=== PATIENT | female | born 1975 | race Caucasian/White ===

== ENCOUNTER → 2021-05-21 | Outpatient (CLI) | payer OTHER | END | disposition home or self-care (01) | LOC: PPH VACUNA 08:00 | PROVIDERS: ATTEND Emergency Medicine Pediatric Emergency Medicine | DX: Z23 Encounter for immunization (principal) ==

== ENCOUNTER 2022-10-29 10:15 | Outpatient (CLI) | payer OTHER | END 2022-10-29 10:30 | disposition home or self-care (01) | LOC: MAMO-SONO 10:15 | PROVIDERS: ATTEND Obstetrics & Gynecology | DX: N64.4 Mastodynia (principal) ==

== ENCOUNTER → 2022-10-29 | Outpatient (CLI) | payer OTHER | END | disposition home or self-care (01) | LOC: LAB 09:16 | PROVIDERS: ATTEND Internal Medicine | DX: D64.89 Other specified anemias (principal); E78.49 Other hyperlipidemia; E07.89 Other specified disorders of thyroid; N39.0 Urinary tract infection, site not specified; M25.50 Pain in unspecified joint; R73.09 Other abnormal glucose; E56.8 Deficiency of other vitamins; D51.8 Other vitamin B12 deficiency anemias; D50.8 Other iron deficiency anemias; E55.9 Vitamin D deficiency, unspecified; Z12.11 Encounter for screening for malignant neoplasm of colon; J45.20 Mild intermittent asthma, uncomplicated; I11.9 Hypertensive heart disease without heart failure; E28.2 Polycystic ovarian syndrome ==

== ENCOUNTER 2022-11-17 07:43 | Outpatient (CLI) | payer OTHER | END 2022-11-17 07:47 | disposition home or self-care (01) | LOC: NUCLEAR 07:43 | PROVIDERS: ATTEND Internal Medicine | DX: R00.2 Palpitations (principal); R07.9 Chest pain, unspecified; I49.3 Ventricular premature depolarization ==

== ENCOUNTER → 2023-03-10 14:15 | Outpatient (CLI) | payer OTHER | END | disposition home or self-care (01) | LOC: LAB 14:15 | DX: J45.30 Mild persistent asthma, uncomplicated (principal); R05.8 Other specified cough ==

== ENCOUNTER 2023-04-08 07:15 | Outpatient (CLI) | payer OTHER | END 2023-04-08 07:17 | disposition home or self-care (01) | LOC: LAB 07:15 | DX: D64.89 Other specified anemias (principal); E78.49 Other hyperlipidemia ==

== ENCOUNTER 2023-05-15 09:00 | Outpatient (CLI) | payer OTHER | END 2023-05-15 09:10 | disposition home or self-care (01) | LOC: PPH VACUNA 09:00 | PROVIDERS: ATTEND Emergency Medicine Pediatric Emergency Medicine | DX: Z23 Encounter for immunization (principal) | CPT/HCPCS: 90686; G0008 ==

== ENCOUNTER 2023-06-30 07:10 | Outpatient (CLI) | payer OTHER ==
[2023-06-30 07:59] LABS: MEAN CELL VOLUME 86.2 fL (80.00-100.00); MEAN CORPUSCULAR HEMOGLOBIN 28.9 pg (27.00-32.0); MEAN CORPUSCULAR HGB CONC 33.5 g/dl (32.0-36.0); PLATELET COUNT 326 K/uL (150-450); RED BLOOD COUNT 4.52 M/uL (4.00-6.00); RED CELL DISTRIBUTION WIDTH 14.9 % (11.5-14.5)
[2023-06-30 08:46] LABS: BILIRUBIN TOTAL 0.25 mg/dL (0.3-1.2); CALCIUM 10.4 mg/dL (8.5-10.1); CHOL HDL RATIO 2.4 (0-5.0); CREATININE SERUM 0.89 mg/dL (0.55-1.02); GFR 68.28; GLOBULINA 3.6 G/DL (2.4-3.5); POTASSIUM 4.52 mEq/L (3.5-5.1); TOTAL PROTEIN 7.6 gm/dL (6.4-8.2)
== END 2023-06-30 07:13 | disposition home or self-care (01) ==
LOC: LAB 07:10
PROVIDERS: ATTEND Internal Medicine
DX: E78.5 Hyperlipidemia, unspecified (principal); E11.65 Type 2 diabetes mellitus with hyperglycemia

== ENCOUNTER → 2023-09-22 07:17 | Outpatient (CLI) | payer OTHER ==
[2023-09-22 08:12] LABS: HEMATOCRIT 40.9 % (36.0-45.00); HEMOGLOBIN 13.7 g/dL (12.0-15.00); MEAN CELL VOLUME 86.3 fL (80.00-100.00); MEAN CORPUSCULAR HEMOGLOBIN 28.9 pg (27.00-32.0); MEAN CORPUSCULAR HGB CONC 33.5 g/dl (32.0-36.0); PLATELET COUNT 329 K/uL (150-450); RED BLOOD COUNT 4.74 M/uL (4.00-6.00); RED CELL DISTRIBUTION WIDTH 14.9 % (11.5-14.5)
[2023-09-22 08:20] LABS: PH,URINE 5.5 (5.0-8.0); URINE APPEARANCE Clear; URINE BILIRRUBIN Negative (NEGATIVE); URINE BLOOD Negative; URINE COLOR Yellow; URINE GLUCOSE Negative (NEGATIVE); URINE LEUKOCYTE Trace; URINE NITRATE Negative; URINE PROTEIN Negative (NEGATIVE); URINE UROBILINOGEN 0.2 E.U./dl
[2023-09-22 08:25] LABS: URINE BACTERIA 96.9 uL (0.0-1933); URINE EPITHELIAL CELLS 3.2 uL (0.0-38.8); URINE RBC 2.4 uL (0.0-20.8); URINE WBC 4.9 uL (0.0-23.2)
[2023-09-22 08:49] LABS: ALBUMIN 4.2 gm/dL (3.4-5.0); BILIRUBIN TOTAL 0.3 mg/dL (0.3-1.2); CALCIUM 10.2 mg/dL (8.5-10.1); CHOL HDL RATIO 1.8 (0-5.0); CREATININE SERUM 0.83 mg/dL (0.55-1.02); GFR 73.69; GLOBULINA 3.7 G/DL (2.4-3.5); POTASSIUM 4.18 mEq/L (3.5-5.1); TOTAL PROTEIN 7.9 gm/dL (6.4-8.2)
== END | disposition home or self-care (01) ==
LOC: LAB 07:17
PROVIDERS: ATTEND Internal Medicine
DX: E11.65 Type 2 diabetes mellitus with hyperglycemia (principal); E78.5 Hyperlipidemia, unspecified; I10 Essential (primary) hypertension